=== PATIENT | female | born 1990 | race Caucasian/White ===

== ENCOUNTER 2017-02-15 17:30 | Emergency (ER) | payer MEDICAID ==
[~2017-02-15] VITALS: Ht 162.6 cm; Wt 65.3 kg
[2017-02-15 17:56] VITALS: BP 111/72
== END 2017-02-15 18:41 | disposition home or self-care (01) ==
LOC: ER 17:37
DX: S13.9XXA Sprain of joints and ligaments of unspecified parts of neck, initial encounter (principal); Z88.0 Allergy status to penicillin; V43.52XA Car driver injured in collision with other type car in traffic accident, initial encounter; Y93.89 Activity, other specified; Y92.488 Other paved roadways as the place of occurrence of the external cause; Y99.8 Other external cause status
CPT/HCPCS: A4606; Z7610